=== PATIENT | male | born 1980 | race Caucasian/White ===

== ENCOUNTER → 2017-03-26 15:51 | Outpatient (CLI) | payer BC ==
[2015-01-27 05:55] VITALS: BMI 21.7
[~2017-03-26 15:51] MED LIST: NASACORT AQ N16.5 GM NASAL
== END | disposition home or self-care (01) ==
LOC: D.CT 15:51
DX: D17.9 Benign lipomatous neoplasm, unspecified (principal)

== ENCOUNTER 2018-12-19 18:25 | Emergency (ER) | payer BC ==
[~2018-12-19] VITALS: Ht 182.9 cm; Wt 80.0 kg
[2018-12-19 18:38] VITALS: BP 115/74; Ht 182.9 cm; Wt 80.0 kg
[2018-12-19] MEDS ORDERED: OMEPRAZOLE40 MG PO (18:42)
[2018-12-19] MEDS ORDERED: ZOLOFT100 MG PO (18:43)
[2018-12-19] MEDS ORDERED: HYDROCODON-ACE1 EAC2 PO (23:08)
[2018-12-19] MEDS ORDERED: KEFLEX500 MG PO (23:08)
== END 2018-12-19 23:40 | disposition home or self-care (01) ==
LOC: D.ER 18:25
DX: S61.210A Laceration without foreign body of right index finger without damage to nail, initial encounter (principal); W26.8XXA Contact with other sharp object(s), not elsewhere classified, initial encounter; Y93.9 Activity, unspecified; Y92.89 Other specified places as the place of occurrence of the external cause